=== PATIENT | female | born 1950 | race Hispanic/Latino ===

== ENCOUNTER → 2018-09-02 | Day surgery (SDC) | payer BC ==
[2018-08-29 14:55] LABS: BASOPHILS % 0.3 % (0.0-1.0); EOSINOPHILS # (AUTO) 0.1 (0.0-0.4); EOSINOPHILS % 0.5 % (0.0-6.0); HEMATOCRIT 41.9 % (34.2-44.1); HEMOGLOBIN 13.9 g/dL (12.0-16.0); LYMPHOCYTES # (AUTO) 4.6 (1.0-3.2); LYMPHOCYTES % 49.6 % (18.0-39.1); MEAN CORPUSCULAR HEMOGLOBIN 30.5 pg (28-32); MEAN CORPUSCULAR HGB CONC 33.2 g/dL (31-35); MEAN CORPUSCULAR VOLUME 92.1 fL (81-99); MONOCYTES # (AUTO) 0.4 (0.2-0.8); MONOCYTES % 4.7 % (4.4-11.3); NEUTROPHILS # (AUTO) 4.1 (2.1-6.9); NEUTROPHILS % 44.6 % (38.7-80.0); PLATELET COUNT 226 x10e3/uL (140-360); RED BLOOD COUNT 4.55 x10e6/uL (3.6-5.1); RED CELL DISTRIBUTION WIDTH 12.4 % (11.7-14.4)
--- NOTE | 2018-08-29 15:06 | Diagnostic Imaging Report ---
EXAMINATION: PA and lateral views of the chest. COMPARISON: None CLINICAL HISTORY: Preadmission, foot surgery DISCUSSION: Lines/tubes: None. Lungs: The lungs are well inflated and clear. No pneumonia or pulmonary edema. Pleura: No pleural effusion or pneumothorax. Heart and mediastinum: The cardiomediastinal silhouette is normal. Bones and soft tissues: No acute bony abnormalities. IMPRESSION: No acute cardiopulmonary abnormalities. Signed by: Dr. Bart Kirkpatrick M.D. on 08/29/2018 3:03 PM
[~2018-09-02] MED LIST: ACETAMINOPHEN 1000 MG/100 ML IV ONE; BUPIVACAINE HCL 0.5% 10ML MPF VIAL INJ ONE; CEFAZOLIN SOD 2 GM/D5W 50ML 50 ML IV ONE; DEXAMETHASONE SOD PHOS INJ 4 MG/ML VIAL ONE; FENTANYL CITRATE/PF 100MCG/2 ML INJ ONE; KETOROLAC TROMETHAMINE 30 MG/ML VIAL ONE; LIDOCAINE HCL 2% LOCAL INJ 5 ML SDV VIAL INJ ONE; MEPERIDINE HCL INJ 25 MG/ML VIAL ONE; MIDAZOLAM HCL 2 MG/2 ML VIAL ONE; NEOSTIGMINE 1 MG/ML 10ML VIAL ONE; ONDANSETRON HCL INJ 2MG/ML 2ML 2 MG/ML VIAL ONE; PROPOFOL IV EMULSION 10 MG/ML 20 ML VIAL ONE; SEVOFLURANE INHAL SOLN 250 ML PEN BTL ONE
--- OUTSIDE RECORDS SUMMARY | 2018-09-02 07:18 | XMS REPORT ---
Author Author [facility] Address Unknown Phone Unavailable Care Team Providers [employer] Professional Name Role Phone KALEN YOUNGER Unavailable Unavailable Payers Payer Name Policy Type Policy Number Effective Date Expiration Date Problems This patient has no known problems. Allergies, Adverse Reactions, Alerts Allergy Name Allergy Type Status Severity Reaction(s) Onset Date Inactive Date Treating Clinician Comments No Known Allergies DA Active U 2016-11-07 00:00:00 Medications This patient has no known medications. Results Test Description Test Time Test Comments Text Results Atomic Results Result Comments CHEST 2 VIEWS 2018-08-29 15:02:00 [place] [id number] Patient Name: KELLY VANG MR #: [id number] : 1950 Age/Sex: 68/F Req #: [id number] Adm Physician: Ordered by: KALEN YOUNGER DP Report #: [id number] Location: OR Room/Bed: Procedure: [id number] DX/CHEST 2 VIEWS Exam Date: 08/29/18 Exam Time: 1430 REPORT STATUS: Signed EXAMINATION: PA and lateral views of the chest. COMPARISON: None CLINICAL HISTORY: Preadmission, foot surgery DISCUSSION: Lines/tubes: None. Lungs: The lungs are well inflated and clear. No pneumonia or pulmonary edema. Pleura: No pleural effusion or pneumothorax. Heart and mediastinum: The cardiomediastinal silhouette is normal. Bones and soft tissues: No acute bony abnormalities. IMPRESSION: No acute cardiopulmonary abnormalities. Signed by: Dr. Vern Garza M.D. on 08/29/2018 3:03 PM Dictated By: VERN GARZA MD [id number] Transcribed By: HELADIO on 08/29/18 1502 COPY TO: KALEN POST DPM
[2018-09-02 11:00] VITALS: BP 140/68
--- NOTE | 2018-09-02 13:14 | Operative Report ---
DATE OF PROCEDURE: September 02, 2018 MANAGER CARDIOVASCULAR: None PREOPERATIVE DIAGNOSES 1. Chronic plantar fasciitis with heel spur, right foot. 2. Rear foot cavus. 3. Equinus. POSTOPERATIVE DIAGNOSES 1. Chronic plantar fasciitis with heel spur, right foot. 2. Rear foot cavus. 3. Equinus. PROCEDURE: EPF with removal of heel spur, right foot. ANESTHESIA: General anesthetic with local block consisting of 15 mL of 0.5% Marcaine plain. HEMOSTASIS: Pneumatic thigh tourniquet at 350 mmHg. ESTIMATED BLOOD LOSS: Less than 10 mL. MATERIALS: 4-0 nylon. COMPLICATIONS: None. CONDITION: Stable. PROCEDURE IN DETAIL: Under mild sedation, the patient was brought to the operating room and placed on the operating table in the supine position. Following IV sedation, anesthesia was obtained with a general anesthetic. At this point, the foot was scrubbed, prepped and draped in the usual aseptic manner. It was then lowered to the table after the pneumatic ankle tourniquet was inflated to 350 mmHg. Attention was then directed to the medial aspect of the right foot where a linear incision was made overlying the plantar fascia. The incision was deepened via sharp and blunt dissection down to the level of the fascia. Fascia was with the use of the plantar fascia. Trocar and cannula were inserted, and a lateral portal was then made for exit of the trocar. The trocar was then removed. The camera was inserted. Medial, central and lateral branches were visualized. Utilizing a fascial blade, medial and central branches were transected through and through and the lateral branch was intact. All instruments were removed. Excision of heel spur, right foot. Attention was directed to the medial aspect of the right foot where utilizing a combination of NathalybaumKay gordon and a power rasp, the heel spur was isolated with the use of intraop fluoroscopy. Once it was isolated, it was then removed utilizing the power rasp up to clean, viable tissue. The area was then flushed with copious amounts of normal sterile saline solution. Confirmation was performed with the use of intraop fluoroscopy. The area was then flushed with a copious amount of normal sterile saline solution. The areas were then closed closing with 4-0 nylon simple interrupted sutures. A clean dressing was applied consisting of Adaptic, 4 x 4's, Kerlix, and an Cristofer bandage. The tourniquet was deflated. There was noted to be hyperemic response to all digits. The patient tolerated the procedure and anesthesia well without complications. Was transported to the recovery room with vital signs stable and vascular status intact to both feet. The patient will be discharged home when she meets criteria. She was given instructions to be strictly nonweightbearing, to ice and elevate the foot while at rest, and to perform passive range of motion exercises when sitting. Follow up with me in the office, and to call the office if you have any questions, concerns, or any problems arise. Job#: [id number] MANUEL
== END | disposition home or self-care (01) ==
LOC: OR 07:16
PROVIDERS: ATTEND Podiatrist Foot & Ankle Surgery
DX: M72.2 Plantar fascial fibromatosis (principal); M77.31 Calcaneal spur, right foot; Q66.7 Congenital pes cavus; M21.271 Flexion deformity, right ankle and toes; E66.9 Obesity, unspecified; Z01.810 Encounter for preprocedural cardiovascular examination; Z01.812 Encounter for preprocedural laboratory examination; Z01.818 Encounter for other preprocedural examination
CPT/HCPCS: 28104; 29893; 36415; 71046; 85025; 93005; J0131; J0690; J1100; J1885; J2001; J2175; J2250; J2405; J2704; J2710; 76000